=== PATIENT | male | born 1980 | race American Indian/Alaskan Native ===

== ENCOUNTER 2019-03-15 23:07 | Emergency (ER) | payer OTHER ==
[2019-03-16] MEDS ORDERED: XYLOCAINE 1% MPF 5 mL INFILTRATI ONE (01:07)
[2019-03-16] MEDS ORDERED: BOOSTRIX IM ONE (01:07)
[2019-03-16] MEDS ORDERED: IBUPROFEN PO ONE (01:07)
--- NOTE | 2019-03-16 02:48 | Emergency Department Report ---
ED General Adult HPI - General Chief complaint: Wound/Laceration Stated complaint: LACERATION TO LEFT THUMB Time Seen by Provider: 03/16/19 00:50 Source: patient Mode of arrival: Ambulatory Limitations: No Limitations - History of Present Illness Initial comments: Patient is a 39-year-old -[place] male with no past medical history presents with a left thumb bleeding laceration after he accidentally cut his distal part of his left thumb while cutting meat about 1 hour ago. Patient states that the bleeding is not controlled at this time. Patient denies numbness, tingling or weakness of left thumb. Severity scale (0 -10): 5 - Related Data Home Medications Medication Instructions Recorded Confirmed Last Taken Fexofenadine/Pseudoephedrine 1 each PO QDAY 04/27/16 05/01/16 04/27/16 09:00 [Maribel-D 24 Hour Tablet] Guaifen/Phenyleph/Acetaminophn 1 each PO QDAY 04/27/16 05/01/16 04/27/16 09:00 [Tylenol Sinus Severe Caplet] Previous Rx's Medication Instructions Recorded Last Taken Type HYDROcodone/APAP 5-325 [Falcon 1 - 2 each PO Q4HR PRN #30 tablet 05/01/16 Unknown Rx 5/325] Ibuprofen [Motrin] 800 mg PO Q8HR PRN #20 tablet 03/16/19 Unknown Rx Sulfamethoxazole/Trimethoprim 1 each PO Q12H #20 tablet 03/16/19 Unknown Rx [Bactrim DS TAB] Allergies Allergy/AdvReac Type Severity Reaction Status Date / Time No Known Allergies Allergy Unverified 10/06/13 15:21 ED Review of Systems ROS: Stated complaint: LACERATION TO LEFT THUMB Other details as noted in HPI ED Past Medical Hx - Past Medical History Previous Medical History?: Yes Hx Hypertension: Yes (BORDERLINE NO MEDS MONITERED FOR PAST 3YRS) Hx Kidney Stones: Yes Additional medical history: Morbid Obesity - Surgical History Past Surgical History?: Yes Additional Surgical History: Neck surgery - Social History Smoking Status: Never Smoker Substance Use Type: None - Medications Home Medications: Home Medications Medication Instructions Recorded Confirmed Last Taken Type Fexofenadine/Pseudoephedrine 1 each PO QDAY 04/27/16 05/01/16 04/27/16 09:00 History [Maribel-D 24 Hour Tablet] Guaifen/Phenyleph/Acetaminophn 1 each PO QDAY 04/27/16 05/01/16 04/27/16 09:00 History [Tylenol Sinus Severe Caplet] HYDROcodone/APAP 5-325 [Falcon 1 - 2 each PO Q4HR PRN #30 tablet 05/01/16 Unknown Rx 5/325] Ibuprofen [Motrin] 800 mg PO Q8HR PRN #20 tablet 03/16/19 Unknown Rx Sulfamethoxazole/Trimethoprim 1 each PO Q12H #20 tablet 03/16/19 Unknown Rx [Bactrim DS TAB] ED Physical Exam - General Limitations: No Limitations ED Course Vital Signs 03/15/19 03/16/19 03/16/19 23:16 01:17 02:17 Temperature 98.2 F Pulse Rate 86 Respiratory 20 20 20 Rate Blood Pressure 142/100 O2 Sat by Pulse 95 Oximetry - Laceration /Wound Repair Left Distal Finger Wound Location: upper extremity (distal left thumb laceration) Wound Length (cm): 3 Wound's Depth, Shape: superficial Wound Explored: contaminated Irrigated w/ Saline (ccs): 40 Betadine Prep?: Yes Anesthesia: 1% Lidocaine Volume Anesthetic (ccs): 4 Wound Debrided: extensive Wound Repaired With: sutures Suture Size/Type: 4:0 Number of Sutures: 8 Layer Closure?: No Progress: Patient tolerated procedure well. Patient is neurovascularly intact after procedure Critical care attestation.: If time is entered above; I have spent that time in minutes in the direct care of this critically ill patient, excluding procedure time. ED Disposition Clinical Impression: Laceration of left thumb without damage to nail Qualifiers: Encounter type: initial encounter Foreign body presence: without foreign body Q ualified Code(s): S61.012A - Laceration without foreign body of left thumb without damage to nail, initial encounter Disposition: TO HOME OR SELFCARE Is pt being admited?: No Does the pt Need Aspirin: No Condition: Stable Instructions: Laceration (ED) Additional Instructions: Take medications with food, drink plenty of fluids and follow-up with your primary care physician in 7-10 days for reevaluation. Return to the ED immed iately if symptoms get worse. Otherwise return to the ED in 12-14 days for suture removal. Prescriptions: Sulfamethoxazole/Trimethoprim [Bactrim DS TAB] 1 each PO Q12H #20 tablet Ibuprofen [Motrin] 800 mg PO Q8HR PRN #20 tablet PRN Reason: Pain , Severe (7-10) Referrals: GEO ORELLANA MD [Primary Care Provider] - 3-5 Days Time of Disposition: 02:46 Print Language: IRISH
[2019-03-16 03:01] VITALS: BP 128/76
== END 2019-03-16 03:00 | disposition home or self-care (01) ==
LOC: ED 23:07
DX: S61.012A Laceration without foreign body of left thumb without damage to nail, initial encounter (principal); I10 Essential (primary) hypertension; E66.01 Morbid (severe) obesity due to excess calories; Z68.1 Body mass index [BMI] 19.9 or less, adult; Z98.890 Other specified postprocedural states; Z87.442 Personal history of urinary calculi; Z79.899 Other long term (current) drug therapy; W26.0XXA Contact with knife, initial encounter; Y93.89 Activity, other specified; Y92.89 Other specified places as the place of occurrence of the external cause; Y99.8 Other external cause status
CPT/HCPCS: 90471; 90715

== ENCOUNTER 2019-05-08 12:26 | Emergency (ER) | payer OTHER ==
[2019-05-08 12:35] VITALS: BP 129/86
--- NOTE | 2019-05-08 13:21 | Event Note ---
ED Screening Note ED Screening Note: This initial assessment/diagnostic orders/clinical plan/treatment(s) is/are subject to change based on patients health status, clinical progression and re- assessment by fellow clinical providers in the ED. Further treatment and workup at subsequent clinical providers discretion. Patient/guardian urged not to elope from the ED as their condition may be serious if not clinically assessed and managed. Initial orders include: 39 yo male presents with L Achilles tenderness and a painful limp for 5 days. He was recently treated for gout and given a steroid shot. The inflammation has resolved in other areas of his L foot but his Achilles soreness remains.
[2019-05-08] MEDS ORDERED: IBUPROFEN 800 MG TAB PO ONE (13:29)
--- NOTE | 2019-05-08 14:36 | XRay Report ---
Left ankle, 2 views INDICATION: Left ankle pain. COMPARISON: None. IMPRESSION: No acute osseous or soft tissue abnormality. No significant DJD. Signer Name: Bro Hay Jr, MD Signed: 05/08/2019 2:32 PM Workstation Name: [id number]
--- NOTE | 2019-05-08 14:37 | XRay Report ---
Left foot, 3 views INDICATION: Left foot pain. COMPARISON: None. IMPRESSION: No acute osseous or soft tissue abnormality. No significant DJD. Signer Name: Bro Hay Jr, MD Signed: 05/08/2019 2:32 PM Workstation Name: [id number]
--- NOTE | 2019-05-08 15:14 | Emergency Department Report ---
ED Back Pain/Injury HPI - General Chief Complaint: Extremity Problem,Nontraumatic Stated Complaint: LT FOOT PAIN Time Seen by Provider: 05/08/19 13:26 Source: patient Limitations: No Limitations - History of Present Illness Initial Comments: 39 yo comes to ER co left foot pain. Acute onset. no fall or trauma. ambulatory to ER. no hx gout. -: Sudden Similar Symptoms Previously: No Place: home Radiation: none Severity: moderate Consistency: intermittent Worsens With: movement Associated Symptoms: denies other symptoms - Related Data Home Medications Medication Instructions Recorded Confirmed Last Taken Fexofenadine/Pseudoephedrine 1 each PO QDAY 04/27/16 05/01/16 04/27/16 09:00 [Maribel-D 24 Hour Tablet] Guaifen/Phenyleph/Acetaminophn 1 each PO QDAY 04/27/16 05/01/16 04/27/16 09:00 [Tylenol Sinus Severe Caplet] Previous Rx's Medication Instructions Recorded Last Taken Type HYDROcodone/APAP 5-325 [Filley 1 - 2 each PO Q4HR PRN #30 tablet 05/01/16 Unknown Rx 5/325] Ibuprofen [Motrin] 800 mg PO Q8HR PRN #20 tablet 03/16/19 Unknown Rx Sulfamethoxazole/Trimethoprim 1 each PO Q12H #20 tablet 03/16/19 Unknown Rx [Bactrim DS TAB] Ibuprofen [Motrin] 800 mg PO Q8HR PRN #30 tablet 05/08/19 Unknown Rx Allergies Allergy/AdvReac Type Severity Reaction Status Date / Time No Known Allergies Allergy Unverified 10/06/13 15:21 ED Review of Systems ROS: Stated complaint: LT FOOT PAIN Other details as noted in HPI Comment: All other systems reviewed and negative ED Past Medical Hx - Past Medical History Morbid Obesity Family history: no significant family history - Social History Smoking Status: Never Smoker ED Back Pain Physical Exam - Exam General: Vital signs noted. No distress. Alert and acting appropriately. Back/Abdomen: No Abdominal Tenderness, No Perithoracic Tenderness, No Perilumbar Tenderness, No Sacroiliac Tenderness, No Flank Tenderness, No Straight Leg Raise Pain Neuro: Yes Normal Sensation, Yes Normal DTR's, Yes Normal Gait, No Motor Weakness ED Course Vital Signs 05/08/19 12:32 Temperature 98.1 F Pulse Rate 90 Respiratory 17 Rate Blood Pressure 129/86 Blood Pressure 129/86 [Right] O2 Sat by Pulse 96 Oximetry Ed Back Pain Tests - Tests Tests: Normal X Rays ED Medical Decision Making - Radiology Data Radiology results: report reviewed, image reviewed - Medical Decision Making xray neg neurovasc intact with bilateral rapid cap refill dp plus 2 b no swellling full rom toes, foot and ankle dc home with RICE therapy and follow up ambulatory on dc Vital Signs 05/08/19 12:32 Temperature 98.1 F Pulse Rate 90 Respiratory 17 Rate Blood Pressure 129/86 Blood Pressure 129/86 [Right] O2 Sat by Pulse 96 Oximetry - Differential Diagnosis ro fx Critical care attestation.: If time is entered above; I have spent that time in minutes in the direct care of this critically ill patient, excluding procedure time. ED Disposition Clinical Impression: Foot pain Disposition: DC-01 TO HOME OR SELFCARE Is pt being admited?: No Does the pt Need Aspirin: No Condition: Stable Instructions: Foot Sprain (ED) Additional Instructions: ICE REST ELEVATE MOTRIN FOR PAIN XRAYS NORMAL TODAY FOLLOW UP WITH DR DAVID IF PAIN PERSISTS Prescriptions: Ibuprofen [Motrin] 800 mg PO Q8HR PRN #30 tablet PRN Reason: Pain, Moderate (4-6) Referrals: PRIMARY CARE, [Primary Care Provider] - 3-5 Days NAYELI BEAR MD [Staff Physician] - 3-5 Days YARIEL DAVID MD [Staff Physician] - 3-5 Days Forms: Work/School Release Form(ED) Time of Disposition: 15:13
== END 2019-05-08 15:36 | disposition home or self-care (01) ==
LOC: ED 12:26
DX: M79.672 Pain in left foot (principal); M25.572 Pain in left ankle and joints of left foot; Z79.899 Other long term (current) drug therapy

== ENCOUNTER 2021-09-19 04:14 | Emergency (ER) | payer OTHER ==
[2021-09-19 07:46] VITALS: BP 113/74
--- NOTE | 2021-09-19 07:59 | Emergency Department Report ---
ED Laceration HPI - HPI Chief Complaint: Dental/Oral Stated Complaint: FELL AND HIT FACE Time Seen by Provider: 09/19/21 07:51 Occurred When: Yesterday Severity: mild Tetanus Status: Up to Date Laceration Symptoms: No Foreign Body Sensation, No Numbness, No Weakness, No Pain Other History: 41 yo had mechanical fall yesterday when his step broke. he fell hitting his lip on a step. no loc. witnessed. co lower lip lac- he called off work. requesting work note. ED Review of Systems ROS: Stated complaint: FELL AND HIT FACE Other details as noted in HPI Comment: All other systems reviewed and negative ED Past Medical Hx - Past Medical History Previous Medical History?: Yes Hx Hypertension: Yes (BORDERLINE NO MEDS MONITERED FOR PAST 3YRS) Hx Kidney Stones: Yes Additional medical history: Morbid Obesity - Surgical History Past Surgical History?: Yes Additional Surgical History: Neck surgery - Family History Family history: no significant - Social History Smoking Status: Current Some Day Smoker Substance Use Type: None - Medications Home Medications: Home Medications Medication Instructions Recorded Confirmed Last Taken Type Amoxicillin [Trimox CAP] 500 mg PO BID #20 capsule 09/19/21 Unknown Rx Laceration Physical Exam - Exam General: Vital signs noted. No distress. Alert and acting appropriately. 1 cm lac to inner lower lip irregular edges swollen lip no tooth instability no jaw instability or swelling of mandible abc intact/ no trismus not through the lip Wound Length (cm): 1 Laceration Location: Other Laceration Exam: Yes Normal Distal CMS, No Foreign Body, No Exposed Tendon, Vessel, or Nerve, No Tendon Injury ED Course Vital Signs 09/19/21 07:43 Temperature 97.6 F Pulse Rate 71 Respiratory 18 Rate Blood Pressure 113/74 O2 Sat by Pulse 100 Oximetry ED Medical Decision Making - Medical Decision Making wound to lower lip- from tooth 24 hours old not through and through; inner lip only tdap utd wound irregular no other injury neuro intact will start on amox and over the counter pain meds for pain dc home with dc plan of care. she verbalizes understanding of plan of are including meds/ diet/activity and follow up Vital Signs (72 hours) 09/19/21 07:43 Temperature 97.6 F Pulse Rate 71 Respiratory 18 Rate Blood Pressure 113/74 O2 Sat by Pulse 100 Oximetry - Differential Diagnosis simple lac Critical care attestation.: If time is entered above; I have spent that time in minutes in the direct care of this critically ill patient, excluding procedure time. ED Disposition Clinical Impression: Laceration of lip Qualifiers: Encounter type: initial encounter Qualified Code(s): S01.511A - Laceration without foreign body of lip, initial encounter Fall Qualifiers: Encounter type: initial encounter Qualified Code(s): W19.XXXA - Unspecified fall, initial encounter Disposition: HOME / SELF CARE / HOMELESS Is pt being admited?: No Does the pt Need Aspirin: No Condition: Stable Instructions: Mouth Laceration Additional Instructions: meds as ordered today follow up with pcp next week to be sure you are healing motrin or tylenol for pain good oral care Prescriptions: Amoxicillin [Trimox CAP] 500 mg PO BID #20 capsule Referrals: GEO ORELLANA MD [Staff Physician] - 3-5 Days Forms: Work/School Release Form(ED) Time of Disposition: 07:57
== END 2021-09-19 08:21 | disposition home or self-care (01) ==
LOC: ED 04:14
DX: S01.511A Laceration without foreign body of lip, initial encounter (principal); F17.200 Nicotine dependence, unspecified, uncomplicated; W19.XXXA Unspecified fall, initial encounter; Y93.89 Activity, other specified; Y92.89 Other specified places as the place of occurrence of the external cause; Y99.8 Other external cause status
CPT/HCPCS: 99282